=== PATIENT | female | born 2000 | race African-American/Black ===

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

== ENCOUNTER 2019-02-04 23:35 | Emergency (ER) | payer BC ==
[~2019-02-04] VITALS: Ht 160 cm; Wt 99.3 kg
[~2019-02-04 23:35] MED LIST: ACCUNEB SO1.25 MG/1 INH; AMOXICILLIN 50500 MG PO; NAPROSYN500 MG PO
[2019-02-04 23:37] VITALS: BP 105/77
[2019-02-05 00:05] LABS: URINE BILIRUBIN NEGATIVE (Negative); URINE BLOOD 1+ (Negative); URINE CLARITY CLEAR; URINE COLOR YELLOW; URINE GLUCOSE-RANDOM* NEGATIVE (Negative); URINE KETONES NEGATIVE (Negative); URINE LEUKOCYTES-REFLEX NEGATIVE (Negative); URINE NITRITE-REFLEX NEGATIVE (Negative); URINE PROTEIN (DIPSTICK) NEGATIVE (Negative); URINE SPECIFIC GRAVITY >= 1.030 (1.005-1.035); URINE UROBILINOGEN 0.2 E.U./dl (0.2-1.0)
[2019-02-05 00:15] LABS: BACTERIA-REFLEX None Seen /HPF (None Seen); CASTS None Seen /LPF (None Seen); CRYSTALS None Seen /LPF (None Seen); MUCUS 0-3 Light strn/LPF (None Seen); SQUAMOUS 0-3 Few /LPF (0-3); URINE RBC None Seen /HPF (0-2); URINE WBC-REFLEX None Seen /HPF (0-5)
[2019-02-05 00:47] LABS: HEMATOCRIT 39.3 % (37.0-47.0); HEMOGLOBIN 12.6 gm/dL (12.0-15.0); MCH 27.7 pg (26.0-34.0); MCHC 32.1 g/dL (28.0-37.0); MCV 86.4 fL (80.0-100.0); RBC 4.55 mil/uL (4.20-5.00); RDW 13.9 % (10.5-14.5); WBC 6.9 thou/uL (4.0-11.0)
[2019-02-05] MEDS ORDERED: ZOFRAN ODT4 MG PO (01:49)
== END 2019-02-05 01:59 | disposition home or self-care (01) ==
LOC: ER 23:35
PROVIDERS: Emergency Medicine Emergency Medical Services
DX: J06.9 Acute upper respiratory infection, unspecified (principal); Z91.040 Latex allergy status; Z88.8 Allergy status to other drugs, medicaments and biological substances

== ENCOUNTER → 2019-07-31 | Outpatient (CLI) | payer BC | LOC: LAB 23:00 | DX: R10.9 Unspecified abdominal pain (principal) ==

== ENCOUNTER 2020-07-10 18:14 | Emergency (ER) | payer BC ==
[~2020-07-10] VITALS: Ht 167.6 cm; Wt 90.7 kg
[~2020-07-10 18:14] MED LIST changes: +ZOFRAN ODT4 MG PO
[2020-07-10 18:22] VITALS: BP 121/67
[2020-07-10 18:42] LABS: URINE BILIRUBIN NEGATIVE (Negative); URINE BLOOD 3+ (Negative); URINE CLARITY CLEAR; URINE COLOR YELLOW; URINE GLUCOSE-RANDOM* NEGATIVE (Negative); URINE KETONES NEGATIVE (Negative); URINE LEUKOCYTES-REFLEX NEGATIVE (Negative); URINE NITRITE-REFLEX NEGATIVE (Negative); URINE PROTEIN (DIPSTICK) TRACE (Negative); URINE UROBILINOGEN 0.2 E.U./dl (0.2-1.0)
[2020-07-10 18:52] LABS: BACTERIA-REFLEX 1-9 Few /HPF (None Seen); CASTS None Seen /LPF (None Seen); CRYSTALS None Seen /LPF (None Seen); SQUAMOUS 0-3 Few /LPF (0-3); URINE RBC 3-10 Few /HPF (0-2); URINE WBC-REFLEX 0-5 Rare /HPF (0-5)
[2020-07-10 20:51] LABS: ABSOLUTE NEUTROPHILS 3.9 thou/uL (1.4-8.2); EOSINOPHILS 1.6 % (0.0-3.0); HEMATOCRIT 42.3 % (37.0-47.0); HEMOGLOBIN 13.9 gm/dL (12.0-15.0); LYMPHOCYTES 35.6 % (24.0-44.0); MCH 27.9 pg (26.0-34.0); MCV 84.6 fL (80.0-100.0); PLATELET COUNT 350 thou/uL (150-400); POLYS 52.8 % (36.0-66.0); RDW 13.4 % (10.5-14.5); WBC 7.4 thou/uL (4.0-11.0)
[2020-07-10 21:04] LABS: CALCIUM 9.3 mg/dL (8.5-10.1); POTASSIUM 4.1 mmol/L (3.5-5.1)
[2020-07-10 21:08] LABS: ALBUMIN 3.8 g/dL (3.4-5.0); TOTAL BILIRUBIN 0.2 mg/dL (0.2-1.0); TOTAL PROTEIN 8.6 g/dL (6.4-8.2)
[2020-07-10] MEDS ORDERED: RECTICARE30 GM TOP (21:13)
== END 2020-07-10 21:45 | disposition home or self-care (01) ==
LOC: ER 18:14
PROVIDERS: Physician Assistant
DX: K59.00 Constipation, unspecified (principal); K60.2 Anal fissure, unspecified; J45.909 Unspecified asthma, uncomplicated; Z91.040 Latex allergy status